=== PATIENT | female | born 1945 | race Caucasian/White ===

== ENCOUNTER 2017-01-20 13:15 | Inpatient (IN) | payer OTHER ==
[~2017-01-20] VITALS: Ht 154.9 cm; Wt 62.1 kg
[2017-01-20 14:11] LABS: ADD MIUA? YES; BILIRUBIN NEGATIVE; BLOOD MODERATE; COLOR YELLOW ((YELLOW)); GLUCOSE (STRIP) NEGATIVE; KETONES 80; LEUKOCYTES NEGATIVE; NITRITE NEGATIVE; PROTEIN (STRIP) 30; SPECIFIC GRAVITY 1.012 (1.000-1.030); UROBILINOGEN 0.2 MG/DL (0.2-1.0)
[2017-01-20 14:17] LABS: BACTERIA RARE /HPF; EPITHELIAL CELLS 1+ /HPF; MUCUS 1+ /LPF; UCUL ADDED? NO; URIC ACID CRYSTALS 1+ /HPF; WHITE BLOOD CELLS 0-5 /HPF (0-5)
[2017-01-20 14:26] LABS: HEMATOCRIT 39.3 % (36.0-46.0); MCH 34.2 PG (29.0-34.0); MCHC 34.4 G/DL (30.0-36.0); MCV 99.5 FL (83-99); MEAN PLAT.VOLUME 8.9 uM^3 (9.5-12.4); PLATELET COUNT 315 K/uL (156-360); RBC DIS.WIDTH-CV 12.8 % (11.8-14.6); RBC DIS.WIDTH-SD 47.5 % (39-53); RED BLOOD COUNT 3.95 M/uL (3.80-5.20); WHITE BLOOD COUNT 15.1 K/uL (4.1-10.2)
[2017-01-20 14:37] LABS: CHLORIDE 97 mEq/L (99-109); POTASSIUM 3.9 mEq/L (3.7-5.4); SODIUM 133 mEq/L (136-147)
[2017-01-20 14:39] LABS: GLUCOSE 123 mg/dL (70-99)
[2017-01-20 14:40] LABS: ANION GAP 14 MEQ/L (2-14)
[2017-01-20 14:41] LABS: TOTAL BILIRUBIN 0.5 mg/dL (0.0-1.0)
[2017-01-20 14:42] LABS: ALKALINE PHOSPHATASE 104 IU/L (3-129)
[2017-01-20 14:43] LABS: GFR ESTIMATE (CALCULATED) > 59 mL/min/
[2017-01-20 14:44] LABS: UREA NITROGEN (BUN) 8 mg/dL (9-23)
[2017-01-20 14:46] LABS: LIPASE 3 U/L (1.0-51.0)
[2017-01-20] MEDS ORDERED: ALPRAZOLAM0.5 MG PO (17:17)
[2017-01-20] MEDS ORDERED: MELOXICAM7.5 MG PO (17:19)
[2017-01-20] MEDS ORDERED: FLUOXETINE HCL20 MG PO (17:20)
[2017-01-20] MEDS ORDERED: PRAVASTATIN SOD40 MG PO (17:22)
[2017-01-20] MEDS ORDERED: OLANZAPINE5 MG PO (17:25)
[2017-01-20] MEDS ORDERED: LANSOPRAZOLE30 MG PO (17:26)
[2017-01-20] MEDS ORDERED: LOW DOSE ASPIRI81 M1 PO (17:28)
[2017-01-20] MEDS ORDERED: VITAMIN C1000 MG PO (17:29)
[2017-01-20] MEDS ORDERED: VITAMIN D-32000 UNI2 PO (17:30)
[2017-01-20] MEDS ORDERED: FISH OIL 1,0001 EAC7 PO (17:31)
[2017-01-20] MEDS ORDERED: CYANOCOBALAM1000 MCG PO (17:31)
[2017-01-20] MEDS ORDERED: FIBER350 GM PO (17:32)
[2017-01-20 17:51] VITALS: BP 103/57
[2017-01-20 19:44] VITALS: BP 107/64
[2017-01-20 23:35] VITALS: BP 107/64
[2017-01-21 04:15] VITALS: BP 104/56
[2017-01-21 07:14] LABS: MCH 34.1 PG (29.0-34.0); MCHC 33.1 G/DL (30.0-36.0); MCV 102.9 FL (83-99); MEAN PLAT.VOLUME 9.4 uM^3 (9.5-12.4); PLATELET COUNT 283 K/uL (156-360); RBC DIS.WIDTH-CV 13.2 % (11.8-14.6); RBC DIS.WIDTH-SD 50.2 % (39-53); WHITE BLOOD COUNT 10.1 K/uL (4.1-10.2)
[2017-01-21 07:30] LABS: RED BLOOD COUNT 3.11 M/uL (3.80-5.20)
[2017-01-21 07:40] VITALS: BP 106/58
[2017-01-21 11:25] VITALS: BP 96/60
[2017-01-21 14:55] VITALS: BP 109/65
[2017-01-21 19:28] VITALS: BP 110/59
[2017-01-22 00:15] VITALS: BP 99/54
[2017-01-22 03:57] VITALS: BP 114/57
[2017-01-22 07:12] LABS: HEMATOCRIT 29.9 % (36.0-46.0); MCH 34.4 PG (29.0-34.0); MCHC 33.4 G/DL (30.0-36.0); MCV 102.7 FL (83-99); MEAN PLAT.VOLUME 9.2 uM^3 (9.5-12.4); PLATELET COUNT 249 K/uL (156-360); RBC DIS.WIDTH-CV 13.3 % (11.8-14.6); RBC DIS.WIDTH-SD 50.5 % (39-53); RED BLOOD COUNT 2.91 M/uL (3.80-5.20); WHITE BLOOD COUNT 8.4 K/uL (4.1-10.2)
[2017-01-22 07:30] VITALS: BP 84/52
[2017-01-22 07:31] LABS: ANION GAP 9 MEQ/L (2-14); CHLORIDE 104 MEQ/L (99-109); GFR ESTIMATE (CALCULATED) > 59 mL/min/; POTASSIUM 3.3 MEQ/L (3.7-5.4); SAMPLE HEMOLYSIS CHECK 0; SAMPLE ICTERIC CHECK 0; SAMPLE LIPEMIA CHECK 0; UREA NITROGEN (BUN) 8 mg/dL (9-23)
[2017-01-22 07:32] LABS: GLUCOSE 68 mg/dL (70-99); SODIUM 141 MEQ/L (136-147)
[2017-01-22 08:06] VITALS: BP 110/58
[2017-01-22 15:15] VITALS: BP 100/58; BP 91/52
[2017-01-22 20:02] VITALS: BP 120/58
[2017-01-23 00:41] VITALS: BP 166/95
[2017-01-23 08:00] VITALS: BP 117/79
[2017-01-23 15:05] VITALS: BP 143/68
[2017-01-24 00:48] VITALS: BP 107/54
[2017-01-24 06:45] VITALS: BP 104/58
[2017-01-24 16:54] VITALS: BP 168/81
[2017-01-24 20:15] VITALS: BP 172/72
[2017-01-24 23:58] VITALS: BP 127/68
[2017-01-25 07:44] VITALS: BP 122/71
[2017-01-25 17:03] VITALS: BP 151/73
[2017-01-26 00:07] VITALS: BP 120/57
[2017-01-26 00:09] VITALS: BP 130/62
[2017-01-26 00:11] VITALS: BP 120/57
[2017-01-26 08:05] VITALS: BP 155/71
[2017-01-26 09:18] LABS: INTER. NORMALIZED RATIO 1.3; PROTHROMBIN TIME 14.3 SEC (10.2-12.9)
[2017-01-26 09:21] LABS: PTT 29.1 SEC (25-37)
[2017-01-26 12:00] LABS: ADD MIUA? NO; BILIRUBIN NEGATIVE; BLOOD NEGATIVE; COLOR YELLOW ((YELLOW)); GLUCOSE (STRIP) NEGATIVE; KETONES 20; LEUKOCYTES NEGATIVE; NITRITE NEGATIVE; PROTEIN (STRIP) NEGATIVE; SPECIFIC GRAVITY 1.006 (1.000-1.030); UROBILINOGEN 0.2 MG/DL (0.2-1.0)
[2017-01-26 15:45] VITALS: BP 147/75
[2017-01-27 00:06] VITALS: BP 98/55
[2017-01-27 07:25] VITALS: BP 132/65
[2017-01-27 16:10] VITALS: BP 126/61
[2017-01-27 23:23] VITALS: BP 109/58
[2017-01-28 07:25] VITALS: BP 147/76
[2017-01-28] MEDS ORDERED: NORCO 5/3251 TABLET PO (12:04)
[2017-01-28] MEDS ORDERED: FLAGYL500 MG PO (12:04)
[2017-01-28] MEDS ORDERED: CIPRO500 MG PO (12:04)
== END 2017-01-28 13:08 | disposition home or self-care (01) | DRG 392 ==
LOC: EME 13:15 → EDOF 16:45 → 2EAST 16:45 → ENRESERV 16:58 → 2EAST 17:39
PROVIDERS: Physician Assistant Surgical; Radiology Diagnostic Radiology; Surgery
DX: K57.20 Diverticulitis of large intestine with perforation and abscess without bleeding (principal); K56.7 Ileus, unspecified; R63.0 Anorexia; E78.5 Hyperlipidemia, unspecified; M19.90 Unspecified osteoarthritis, unspecified site; F17.200 Nicotine dependence, unspecified, uncomplicated; Z79.82 Long term (current) use of aspirin
CPT/HCPCS: 49406; 74000; 74177; 80048; 80053; 81003; 83605; 83690; 85027; 85610; 85730; 87040; 87070; 87075; 87205; 94799; 99281; 99284; C1769; J0295; J2270; J2405; J3010; J7030; J7050; J7120; S0028; S0030

== ENCOUNTER → 2017-02-15 | Outpatient (CLI) | payer OTHER ==
[~2017-02-15] MED LIST: ALPRAZOLAM0.5 MG PO; CIPRO500 MG PO; CYANOCOBALAM1000 MCG PO; FIBER350 GM PO; FISH OIL 1,0001 EAC7 PO; FLAGYL500 MG PO; FLUOXETINE HCL20 MG PO; LANSOPRAZOLE30 MG PO; LOW DOSE ASPIRI81 M1 PO; MELOXICAM7.5 MG PO; NORCO 5/3251 TABLET PO; OLANZAPINE5 MG PO; PRAVASTATIN SOD40 MG PO; VITAMIN C1000 MG PO; VITAMIN D-32000 UNI2 PO
== END | disposition home or self-care (01) ==
LOC: CDC 10:02
DX: K57.20 Diverticulitis of large intestine with perforation and abscess without bleeding (principal)
CPT/HCPCS: 93000

== ENCOUNTER 2017-02-22 21:25 | Inpatient (IN) | payer OTHER ==
[~2017-02-22] VITALS: Ht 157.5 cm; Wt 63.8 kg
[2017-02-23 09:37] VITALS: BP 103/62
[2017-02-23 21:30] VITALS: BP 101/53
[2017-02-24 03:00] VITALS: BP 110/56
[2017-02-24 07:16] VITALS: BP 103/55
[2017-02-24 08:45] LABS: HEMATOCRIT 27.2 % (36.0-46.0); MCH 33.1 PG (29.0-34.0); MCHC 32.7 G/DL (30.0-36.0); MCV 101.1 FL (83-99); MEAN PLAT.VOLUME 9.5 uM^3 (9.5-12.4); RBC DIS.WIDTH-CV 13.1 % (11.8-14.6); RBC DIS.WIDTH-SD 48.2 % (39-53); WHITE BLOOD COUNT 10.2 K/uL (4.1-10.2)
[2017-02-24 09:04] LABS: ANION GAP 9 MEQ/L (2-14); CHLORIDE 108 MEQ/L (99-109); GFR ESTIMATE (CALCULATED) > 59 mL/min/; GLUCOSE 99 mg/dL (70-99); POTASSIUM 4.3 MEQ/L (3.7-5.4); SAMPLE HEMOLYSIS CHECK 0; SAMPLE ICTERIC CHECK 0; SAMPLE LIPEMIA CHECK 0; SODIUM 145 MEQ/L (136-147); UREA NITROGEN (BUN) 6 mg/dL (9-23)
[2017-02-24 09:05] LABS: PLATELET COUNT 240 K/uL (156-360); RED BLOOD COUNT 2.69 M/uL (3.80-5.20)
[2017-02-24 11:10] VITALS: BP 95/64
[2017-02-24 15:15] VITALS: BP 90/53
[2017-02-24 20:01] VITALS: BP 124/61
[2017-02-24 23:44] VITALS: BP 115/61
[2017-02-25 04:58] VITALS: BP 115/61
[2017-02-25 08:40] VITALS: BP 96/55
[2017-02-25 15:00] VITALS: BP 100/60
[2017-02-25 18:30] VITALS: BP 96/53
[2017-02-26] VITALS: BP 99/67
[2017-02-26 01:01] VITALS: BP 99/67
[2017-02-26 08:52] LABS: HEMATOCRIT 26.5 % (36.0-46.0); MCH 33.2 PG (29.0-34.0); MCHC 32.8 G/DL (30.0-36.0); MCV 101.1 FL (83-99); MEAN PLAT.VOLUME 9.3 uM^3 (9.5-12.4); PLATELET COUNT 228 K/uL (156-360); RBC DIS.WIDTH-CV 13.2 % (11.8-14.6); RBC DIS.WIDTH-SD 48.9 % (39-53); RED BLOOD COUNT 2.62 M/uL (3.80-5.20); WHITE BLOOD COUNT 8.7 K/uL (4.1-10.2)
[2017-02-26 11:54] LABS: ANION GAP 10 MEQ/L (2-14); CHLORIDE 103 MEQ/L (99-109); GFR ESTIMATE (CALCULATED) > 59 mL/min/; GLUCOSE 120 mg/dL (70-99); POTASSIUM 3.4 MEQ/L (3.7-5.4); SAMPLE HEMOLYSIS CHECK 0; SAMPLE ICTERIC CHECK 0; SAMPLE LIPEMIA CHECK 0; SODIUM 140 MEQ/L (136-147); UREA NITROGEN (BUN) 4 mg/dL (9-23)
[2017-02-26 16:32] VITALS: BP 120/60
[2017-02-26 19:40] VITALS: BP 131/62
[2017-02-26 23:25] VITALS: BP 130/76
[2017-02-27 07:53] VITALS: BP 146/70
[2017-02-27 15:46] VITALS: BP 107/52
[2017-02-28 00:26] VITALS: BP 144/67
[2017-02-28 07:12] VITALS: BP 117/61
[2017-02-28] MEDS ORDERED: PERCOCET 5/31 TABLET PO (09:52)
[2017-02-28] MEDS ORDERED: COLACE100 MG PO (09:53)
== END 2017-02-28 13:11 | disposition home or self-care (01) | DRG 330 ==
LOC: ENRESERV 21:25 → 5EAST 02-23 08:39 → 2SOUTH 02-23 08:39 → 5EAST 02-23 08:39 → 2SOUTH 02-23 09:27 → ENRESERV 02-23 14:42 → 5EAST 02-23 20:07
PROVIDERS: Physician Assistant Surgical; Surgery
DX: K57.32 Diverticulitis of large intestine without perforation or abscess without bleeding (principal); Z68.41 Body mass index [BMI] 40.0-44.9, adult; K21.9 Gastro-esophageal reflux disease without esophagitis; J20.9 Acute bronchitis, unspecified; F41.8 Other specified anxiety disorders; E78.00 Pure hypercholesterolemia, unspecified; F17.200 Nicotine dependence, unspecified, uncomplicated; Z90.710 Acquired absence of both cervix and uterus
CPT/HCPCS: 80048; 85027; 88302; 88305; 88307; 94799; J0131; J0330; J1100; J1170; J1885; J2250; J2405; J2710; J3010; J7120; S0030